=== PATIENT | female | born 1950 | race Caucasian/White ===

== ENCOUNTER 2021-11-05 07:32 | Emergency (ER) | payer MEDICARE, OTHER ==
[2021-11-05 10:14] LABS: BASOPHIL 0.5 % (0-2); EOSINOPHIL 0.4 % (0-7); HCT 38.5 % (37.0-47.0); HGB 13.2 g/dl (12.5-16.0); LYMPHOCYTE 21.4 % (15-48); MCH 31.1 pg (25.0-31.0); MCHC 34.3 g/dL (32.0-36.0); MCV 90.6 fL (78.0-100.0); MONOCYTE 7.5 % (0-12); MPV 10.3 fL (6.0-9.5); NEUTROPHIL 69.8 % (41-80); NRBC 0; PLT 313 K/uL (150-400); RBC 4.25 M/uL (4.20-5.40); RDW 13.5 % (11.5-14.0); WBC 8.2 K/uL (4.0-10.5)
[2021-11-05 10:35] LABS: ALBUMIN 4.1 g/dL (3.4-5.0); BILIRUBIN - TOTAL 0.5 mg/dL (0.2-1.0); BUN/CREAT RATIO (CALC) 13.5 RATIO; CREATININE 0.74 mg/dL (0.51-0.95); GLOBULIN (CALCULATION) 3.3 g/dL; POTASSIUM 3.3 mmol/L (3.5-5.1); TOTAL PROTEIN 7.4 g/dL (6.4-8.2)
[2021-11-05 11:49] LABS: INR 1.09 (0.9-1.2); PROTHROMBIN TIME 13.5 SECONDS (11.8-13.4); PTT 25.9 SECONDS (24.4-34.7)
[2021-11-05 12:30] LABS: FT4 (FREE T4) 1.4 ng/dL (0.76-1.46)
[2021-11-05] MEDS ORDERED: CARAFATE S500 MG/TSP PO (16:27)
[2021-11-05] MEDS ORDERED: PROTONIX40 MG PO (16:27)
[2021-11-05] MEDS ORDERED: PREDNISONE20 MG PO (16:33)
== END 2021-11-05 16:55 | disposition home or self-care (01) ==
LOC: FER 07:32
PROVIDERS: Emergency Medicine
DX: J04.0 Acute laryngitis (principal); J44.9 Chronic obstructive pulmonary disease, unspecified; R91.1 Solitary pulmonary nodule; F17.210 Nicotine dependence, cigarettes, uncomplicated; Z88.8 Allergy status to other drugs, medicaments and biological substances; Z79.899 Other long term (current) drug therapy
CPT/HCPCS: 36415; 70491; 71045; 71260; 80053; 82550; 84439; 84443; 85025; 85610; 85730; J1100; J3480; Q9967